=== PATIENT | female | born 1980 | race African-American/Black ===

== ENCOUNTER 2017-04-28 06:38 | Emergency (ER) | payer OTHER ==
[~2017-04-28 06:38] MED LIST: ALBUTEROL17 GM INH; AUGMENTIN PO; BACTRIM DS TABL1 TA1 DOB; CIPRO PO; FLEXERIL PO; HYDROCODONE-APA1 T55 PO; KEFLEX500 MG PO; KETOPROFEN PO; LORTAB 5/500 TA1 TA1 PO; PROMETHAZINE V240 ML PO; VICODIN
== END 2017-04-28 07:00 | disposition home or self-care (01) ==
LOC: CED 06:38
DX: M54.5 Low back pain (principal); F17.200 Nicotine dependence, unspecified, uncomplicated; Z90.49 Acquired absence of other specified parts of digestive tract
CPT/HCPCS: 99283